=== PATIENT | female | born 1960 | race Two or more races ===

== ENCOUNTER 2019-12-06 11:01 | Day surgery (SDC) | payer OTHER ==
[~2019-12-06 11:01] MED LIST: AMLODI PO; ASPIR 8181 MG PO; BIOTIN PO; JENTADUETO XR1 EACH PO; SIMVASTATIN20 MG PO; SYNTHROID100 MCG PO; VITAMIN D31 ML PO
== END 2019-12-06 18:00 | disposition home or self-care (01) ==
LOC: CIR.AMB 11:01
PROVIDERS: ATTEND Obstetrics & Gynecology
DX: N85.01 Benign endometrial hyperplasia (principal); N72 Inflammatory disease of cervix uteri

== ENCOUNTER 2019-12-24 06:00 | Outpatient (CLI) | payer OTHER ==
[~2019-12-24] VITALS: Ht 157.5 cm; Wt 71.7 kg
[2019-12-24] MEDS ORDERED: AMLODIPINE PO (14:45)
[2019-12-25] MEDS ORDERED: SYNTHROID88 MCG PO ×2 (11:33→15:16)
== END 2019-12-25 06:05 | disposition home or self-care (01) ==
LOC: LAB 06:00 → ADM 11:15 → EDSTATUS 11:15 → LAB 12-25 06:05 → SURH 12-27 11:15 → EDSTATUS 12-27 11:15
PROVIDERS: ATTEND Obstetrics & Gynecology
DX: N85.02 Endometrial intraepithelial neoplasia [EIN] (principal); Z20.828 Contact with and (suspected) exposure to other viral communicable diseases; Z01.810 Encounter for preprocedural cardiovascular examination; Z01.812 Encounter for preprocedural laboratory examination

== ENCOUNTER 2020-02-06 10:45 | Inpatient (IN) | payer OTHER ==
[~2020-02-06] VITALS: Ht 165.1 cm; Wt 70.3 kg
[~2020-02-06 10:45] MED LIST changes: +AMLODIPINE PO; +SYNTHROID88 MCG PO
[2020-02-13] MEDS ORDERED: NORVASC2.5 MG PO (08:14)
[2020-02-13] MEDS ORDERED: LOSARTAN POTASS25 MG (08:15)
[2020-02-13] MEDS ORDERED: IBU600 MG PO (09:23)
[2020-02-13] MEDS ORDERED: SURFAK240 M1 PO (09:24)
[2020-02-13] MEDS ORDERED: NEURONTIN600 M1 PO (09:25)
[2020-02-13] MEDS ORDERED: MIRALAX17 GM PO (09:26)
== END 2020-02-15 10:05 | disposition home or self-care (01) | DRG 742 ==
LOC: OB/GYN 02-13 06:00 → O/R 02-13 06:00 → SURH 02-13 07:00 → OB/GYN 02-13 12:15
PROVIDERS: Surgery; ADMIT Obstetrics & Gynecology; ATTEND Obstetrics & Gynecology
PROC: 0UT2FZZ Resection of Bilateral Ovaries, Via Natural or Artificial Opening With Percutaneous Endoscopic Assistance (ICD-10-PCS; 2020-02-13)
PROC: 0TJB8ZZ Inspection of Bladder, Via Natural or Artificial Opening Endoscopic (ICD-10-PCS; 2020-02-13)
PROC: 0FT44ZZ Resection of Gallbladder, Percutaneous Endoscopic Approach (ICD-10-PCS; 2020-02-13)
PROC: 0WQF4ZZ Repair Abdominal Wall, Percutaneous Endoscopic Approach (ICD-10-PCS; 2020-02-13)
PROC: 0WQF4ZZ Repair Abdominal Wall, Percutaneous Endoscopic Approach (ICD-10-PCS; 2020-02-13)
PROC: 0UT9FZZ Resection of Uterus, Via Natural or Artificial Opening With Percutaneous Endoscopic Assistance (ICD-10-PCS; principal; 2020-02-13 07:00)
PROC: 0UT7FZZ Resection of Bilateral Fallopian Tubes, Via Natural or Artificial Opening With Percutaneous Endoscopic Assistance (ICD-10-PCS; 2020-02-13 07:00)
DX: D25.1 Intramural leiomyoma of uterus (principal); K80.10 Calculus of gallbladder with chronic cholecystitis without obstruction; N80.0 Endometriosis of uterus; D27.1 Benign neoplasm of left ovary; D28.2 Benign neoplasm of uterine tubes and ligaments; N72 Inflammatory disease of cervix uteri; D26.1 Other benign neoplasm of corpus uteri; K43.2 Incisional hernia without obstruction or gangrene; K42.9 Umbilical hernia without obstruction or gangrene

== ENCOUNTER 2021-06-15 10:07 | Outpatient (CLI) | payer OTHER ==
[~2021-06-15 10:07] MED LIST changes: +IBU600 MG PO; +LOSARTAN POTASS25 MG; +MIRALAX17 GM PO; +NEURONTIN600 M1 PO; +NORVASC2.5 MG PO; +SURFAK240 M1 PO
== END 2021-06-15 11:07 | disposition home or self-care (01) ==
LOC: ASH CLINIC 10:07
DX: U07.1 COVID-19 (principal); Z23 Encounter for immunization